=== PATIENT | female | born 1985 ===

== ENCOUNTER → 2020-09-21 | Outpatient (CLI) | payer OTHER ==
--- NOTE | 2020-09-21 14:20 | US ---
EXAMINATION TYPE: Transabdominal DATE OF EXAM: 09/21/2020 1:52 PM COMPARISON: NONE CLINICAL HISTORY: Z36 Confirm Dates, O46.91 bleeding. dating with spotting, light red, today, h/o pel marisol pain on the left, . Positive beta-hCG test. EXAM PERFORMED: OBTA EXAM MEASUREMENTS: GESTATIONAL AGE / DATING Physician Established: Not yet established Dates by LMP: ( 9 weeks/1 days) EDC: 04/25/2021 Dates by First Scan: No previous this is first scan Dates by Current Scan for: (6 weeks/6 days) EDC: 05/11/2021 MATERNAL ANATOMY Uterus: 13.7 x 6.8 x 6.0cm, multiple fibroids seen, left posterior = 4.0cm , right anterior = 1.3cm, midline posterior = 3.2cm Right Ovary: 2.0 x 2.1 x 2.2cm Left Ovary: 2.3 x 2.2 x 1.4cm Post CDS / Adnexa: wnl Presence of free fluid: no Presence of corpus luteal cyst: yes, left ovary 1.8cm Presence of subchorionic bleed: no GESTATION / SURVEY CRL: not seen at this time MSD: 2.3cm (6 weeks/6 days), slightly irregular with no fetus seen within sac, only yolk sac Yolk Sac (normal less than 6mm): 5mm Date of LMP: 07/19/2020 Beta HcG (if available): pending Heterogeneous anteverted prominent uterus. There is a elongated anechoic structure measuring 2.7 x 2. 0 x 2.2 cm in the uterine fundus. There is central 5 mm rim hyperechoic round lesion. Findings could reflect gestational sac and yolk sac. No distinct pole seen. Possible gestational sac does not show great surrounding decidual reaction. No free fluid in pelvic cul-de-sac. Lobulated contour to th e uterus suggests underlying fibroids. Both ovaries identified. No suspicious extra ovarian adnexal lesions. IMPRESSION: Abnormal study. Findings could reflect too early to visualize intrauterine but suspicious for spontaneous . Ectopic is not entirely excluded. Serial beta-hCG and ultrasound follow-up should be considered based on clinical correlation.
== END | disposition home or self-care (01) ==
LOC: RADUSWWP 13:35
PROVIDERS: ATTEND Obstetrics & Gynecology
DX: O46.91 Antepartum hemorrhage, unspecified, first trimester (principal)
CPT/HCPCS: 76801; 84702

== ENCOUNTER → 2020-09-24 | Outpatient (CLI) | payer OTHER | END | disposition home or self-care (01) | LOC: LABWHC1 09:38 | PROVIDERS: ATTEND Obstetrics & Gynecology | DX: O20.0 Threatened abortion (principal); Z3A.00 Weeks of gestation of pregnancy not specified | CPT/HCPCS: 36415; 84702 ==

== ENCOUNTER 2021-11-26 23:55 | Emergency (ER) | payer OTHER ==
--- NOTE | 2021-11-27 00:51 | ED ---
Female Urogenital HPI - General Chief complaint: Vaginal Bleeding Stated complaint: 8-9 weeks ,bleeding and cramping Time Seen by Provider: 11/27/21 00:14 Source: patient Mode of arrival: ambulatory Limitations: no limitations - History of Present Illness Initial comments: This patient is 36-year-old woman who presents with complaint of being and having some vaginal spotting. Patient states that she did take a test approximately 3 weeks ago which was positive. Her last period was the end of August. She states that she had been feeling well until tonight when she started having some spotting and some suprapubic cramping. Complaint: vaginal bleeding -: hour(s) Location: suprapubic Radiation: non-radiating Severity: mild Quality: cramping Consistency: intermittent Improves with: none Worsens with: none Last Menstrual Period: 09/25/21 Patient : Yes - Related Data Allergies Allergy/AdvReac Type Severity Reaction Status Date / Time No Known Allergies Allergy Verified 11/27/21 00:05 Review of Systems ROS Statement: Those systems with pertinent positive or pertinent negative responses have been documented in the HPI. ROS Other: All systems not noted in ROS Statement are negative. Constitutional: Denies: fever, chills Respiratory: Denies: cough, dyspnea Cardiovascular: Denies: chest pain, palpitations Gastrointestinal: Denies: abdominal pain, vomiting, diarrhea Genitourinary: Denies: dysuria, frequency, discharge Musculoskeletal: Denies: back pain Skin: Denies: rash Neurological: Denies: headache Past Medical History Past Medical History: No Reported History History of Any Multi-Drug Resistant Organisms: None Reported Past Surgical History: No Surgical Hx Reported Past Psychological History: No Psychological Hx Reported Smoking Status: Former smoker Past Alcohol Use History: None Reported Past Drug Use History: None Reported General Exam Limitations: no limitations General appearance: alert, in no apparent distress Head exam: Present: atraumatic, normocephalic Eye exam: Present: normal appearance. Absent: scleral icterus, conjunctival injection Neck exam: Present: normal inspection Respiratory exam: Present: normal lung sounds bilaterally. Absent: respiratory distress, wheezes, rales, rhonchi, stridor Cardiovascular Exam: Present: regular rate, normal rhythm, normal heart sounds. Absent: systolic murmur, diastolic murmur, rubs, gallop GI/Abdominal exam: Present: soft. Absent: distended, tenderness, guarding, rebound, rigid, mass External exam: Present: other (Declines gynecologic exam) Extremities exam: Present: normal inspection, normal capillary refill. Absent: pedal edema, calf tenderness Back exam: Present: normal inspection. Absent: CVA tenderness (R), CVA tenderness (L) Neurological exam: Present: alert Skin exam: Present: warm, dry, intact, normal color. Absent: rash Course Vital Signs 11/27/21 11/27/21 00:05 03:01 Temperature 97.5 F L 98.7 F Pulse Rate 82 71 Respiratory 16 20 Rate Blood Pressure 137/81 137/77 O2 Sat by Pulse 98 97 Oximetry Medical Decision Making - Medical Decision Making This patient is a 36-year-old woman in early with ultrasound not able to identify . Discussed appropriate further care and follow-up, including having repeat hCG and ultrasound in 2 days. Discussed appropriate return parameters. All questions answered. - Lab Data Lab Results 11/27/21 11/27/21 Range/Units 00:38 01:55 HCG, Quant 3635.7 mIU/mL Blood Type A Negative Blood Type Recheck A Neg Bld Type Recheck Status No Antibody Screen NEGATIVE Spec Expiration Date 11/30/20212354 Disposition Clinical Impression: Threatened Disposition: HOME SELF-CARE Condition: Good Instructions (If sedation given, give patient instructions): Threatened Miscarriage (ED) Is patient prescribed a controlled substance at d/c from ED?: No Referrals: Rianna Gloria NPC [Family Provider] - 1-2 days Malena Gomez DO [Doctor of Osteopathic Medicine] - 1-2 days
--- NOTE | 2021-11-27 01:27 | US ---
EXAM: US First Trimester , Transabdominal CLINICAL HISTORY: ITS.REASON US Reason: first trimester bleeding TECHNIQUE: Real-time transabdominal obstetrical ultrasound of the maternal pelvis and a first trimester with image documentation. COMPARISON: No previous studies. FINDINGS: Gestation: No intrauterine gestation is noted. Placenta/amniotic fluid: Cannot be adequately evaluated due to the early gestational age. Uterus/cervix: The uterus measures 8.5 x 6.8 x 7 cm. Endometrial stripe measures 1.2 cm in thickness. No myometrial mass. Ovaries: Both ovaries are obscured by bowel gas. No mass. Free fluid: No free fluid within the posterior cul-de-sac. IMPRESSION: 1. No intrauterine gestation is noted. 2. Early intrauterine or ectopic gestations cannot be excluded and clinical correlation and correlation with laboratory values are advised. 3. No free fluid. 4. Neither ovary is visualized due to bowel gas.
[2021-11-27 03:07] VITALS: BP 137/77; PULSE 71; RESP 20; TEMP 98.7
== END 2021-11-27 03:07 | disposition home or self-care (01) ==
LOC: EC 23:55
DX: O09.91 Supervision of high risk pregnancy, unspecified, first trimester (principal); O20.0 Threatened abortion; Z87.891 Personal history of nicotine dependence; Z3A.00 Weeks of gestation of pregnancy not specified
CPT/HCPCS: 36415; 76801; 76817; 84702; 86850; 86900; 86901; 99284

== ENCOUNTER 2021-11-30 08:59 | Emergency (ER) | payer OTHER ==
[2021-11-30 09:08] VITALS: RESP 18
--- NOTE | 2021-11-30 11:25 | ED ---
General Adult HPI - General Chief complaint: Vaginal Bleeding Stated complaint: 7-8 wks preg, vaginal bleeding Time Seen by Provider: 11/30/21 09:12 Source: patient, RN notes reviewed Mode of arrival: ambulatory Limitations: no limitations - History of Present Illness Initial comments: 36-year-old female presents emergency Department with chief complaint of vaginal bleeding. Patient states started spotting on Monday. Patient was seen in emergency department that have any findings on ultrasound. Patient had hCG drawn on Monday and today. Patient states bleeding seemed increased. She states she has mild discomfort. Patient had a miscarriage last year which this feels very similar but less painful. Patient denies any nausea vomiting diarrhea constipation. Patient has no dysuria no other complaints. - Related Data Allergies Allergy/AdvReac Type Severity Reaction Status Date / Time No Known Allergies Allergy Verified 11/30/21 09:08 Review of Systems ROS Statement: Those systems with pertinent positive or pertinent negative responses have been documented in the HPI. ROS Other: All systems not noted in ROS Statement are negative. Past Medical History Past Medical History: No Reported History History of Any Multi-Drug Resistant Organisms: None Reported Past Surgical History: No Surgical Hx Reported Past Psychological History: No Psychological Hx Reported Smoking Status: Former smoker Past Alcohol Use History: None Reported Past Drug Use History: None Reported General Exam Limitations: no limitations General appearance: alert, in no apparent distress Head exam: Present: atraumatic, normocephalic, normal inspection Respiratory exam: Present: normal lung sounds bilaterally. Absent: respiratory distress, wheezes, rales, rhonchi, stridor Cardiovascular Exam: Present: regular rate, normal rhythm, normal heart sounds. Absent: systolic murmur, diastolic murmur, rubs, gallop, clicks GI/Abdominal exam: Present: soft, normal bowel sounds. Absent: distended, tenderness, guarding, rebound, rigid Back exam: Absent: CVA tenderness (R), CVA tenderness (L) Neurological exam: Present: alert, oriented X3 Skin exam: Present: warm, dry, intact, normal color. Absent: rash Course Vital Signs 11/30/21 09:05 Temperature 98.5 F Pulse Rate 71 Respiratory 18 Rate Blood Pressure 128/75 O2 Sat by Pulse 98 Oximetry Medical Decision Making - Medical Decision Making 36-year-old female presented for vaginal bleeding early . Patient hCG has declined. Patient's having clotting, vaginal bleeding. Patient ultrasound does not show any intrauterine . Patient is having current miscarriage. Patient was given RhoGAM as she is A- blood type. Disposition Clinical Impression: Miscarriage Disposition: HOME SELF-CARE Condition: Stable Instructions (If sedation given, give patient instructions): Miscarriage (ED) Additional Instructions: Please return to the Emergency Department if symptoms worsen or any other co ncerns. Is patient prescribed a controlled substance at d/c from ED?: No Referrals: Andree Lebron DO [Primary Care Provider] - 1-2 days Time of Disposition: 13:25
--- NOTE | 2021-11-30 13:06 | US ---
EXAMINATION TYPE: Transabdominal DATE OF EXAM: 11/30/2021 12:08 PM COMPARISON: US 11/27/2021 CLINICAL HISTORY: Pain, rule out ectopic. PAIN AND BLEEDING x4 DAYS EXAM PERFORMED: Transvaginal (TV) and Transabdominal (TA), endovaginal scanning performed for better evaluation of the adnexa, ovaries EXAM MEASUREMENTS: GESTATIONAL AGE / DATING Physician Established: Not yet established Dates by LMP: ( weeks/ days) EDC: Dates by First Scan: NO IUP SEEN MATERNAL ANATOMY Uterus: 11.2 x 5.6 x 6.6cm, MULTIPLE FIBOIDS NOTED THROUGHOUT UT, LARGEST MEASURES APPROX. 2.5 x 2.1 x 2.9cm Right Ovary: 2.8 x 2.3 x 2.5cm, CORPUS LUT SEEN FOLLICLE ALSO SEEN MEASURING 0.9 x 0.8 x 0.9cm Left Ovary: 1.9 x 1.4 x 2.0xm, SEEN TV ONLY, CYSTIC AREA SEEN MEASURING APPROX. 1.6x 1.2 x 1.8cm Post CDS / Adnexa: APPEARS WNL, TRACE FF Presence of free fluid: NO Presence of corpus luteal cyst: YES LAURA. APPROX 1.4 x 1.3 x 1.3cm Presence of subchorionic bleed: NO GESTATION / SURVEY IUP: No IUP seen at this time Date of LMP: 09/25/21 Beta HcG (if available): 3,468ml NO IUP SEEN ON TODAY'S EXAM, ENDOMETRIUM MEASURES 1.3cm, QUESTIONABLE HYPOECHOIC AREA SEEN IN RT ADNE XA, APPEARS SPERATE FROM RT OVARY, MEASURES APPROX. 2.7 x 2.1 x 1.9cm IMPRESSION: No intrauterine is evident. Probable fibroid uterus. Cannot exclude ectopic .
[2021-11-30] MEDS ORDERED: Rhogam IMMUNE GLOBULIN 1,500 UNIT/1 ML IM ONE (13:20)
[2021-11-30 15:16] VITALS: BP 127/71; PULSE 72; TEMP 98.4
== END 2021-11-30 15:20 | disposition home or self-care (01) ==
LOC: EC 08:59
DX: O03.9 Complete or unspecified spontaneous abortion without complication (principal); Z87.891 Personal history of nicotine dependence
CPT/HCPCS: 86900; 86901; 86850; 76801; 76817; 99284; 96372; J2790

== ENCOUNTER → 2021-11-30 | Outpatient (CLI) | payer OTHER | END | disposition home or self-care (01) | LOC: LABWHC1 08:40 | PROVIDERS: ATTEND Nurse Practitioner Family | DX: O20.9 Hemorrhage in early pregnancy, unspecified (principal); Z3A.00 Weeks of gestation of pregnancy not specified | CPT/HCPCS: 36415; 84702 ==

== ENCOUNTER 2021-12-05 22:27 | Emergency (ER) | payer OTHER ==
[2021-12-05 22:31] VITALS: BP 141/72; PULSE 76; RESP 18; TEMP 98.6
[2021-12-05] MEDS ORDERED: SODIUM CHLORIDE 0.9% 1,000 ML IV ONE (22:35)
[2021-12-05] MEDS ORDERED: KETOROLAC 15 MG/ML 1 ML VIAL IVP STA (22:35)
[2021-12-05] MEDS ORDERED: ONDANSETRON 4 MG/2 ML VIAL IVP STA (22:35)
[2021-12-05] MEDS ORDERED: MORPHINE SULFATE 4 MG/ML SYRINGE IV STA (22:35)
--- NOTE | 2021-12-05 22:42 | ED ---
Abdominal Pain HPI - General Chief Complaint: Abdominal Pain Stated Complaint: Miscarriage, Abdominal Swelling Time Seen by Provider: 12/05/21 22:34 Source: patient, RN notes reviewed, old records reviewed Mode of arrival: ambulatory Limitations: no limitations - History of Present Illness Initial Comments: This is a 28-year-old female to emergency department for evaluation of recent miscarriage. Patient has had prior evaluations for same issue. Mild nausea no vomiting but now with increased epigastric and periumbilical abdominal pain as well as the persistent pelvic abdominal pain and cramping leading has slowed down to the fact that almost stopped. Patient otherwise has no fevers, no other complaints. No surgical history. This is her fourth MD Complaint: abdominal pain -: days(s) Location: diffuse, periumbilical, epigastric, suprapubic Radiation: epigastric, suprapubic Severity: moderate Severity scale (1-10): 5 Quality: stabbing Consistency: constant Improves With: nothing Worsens With: nothing Associated Symptoms: nausea Treatments Prior to Arrival: other - Related Data Allergies Allergy/AdvReac Type Severity Reaction Status Date / Time No Known Allergies Allergy Verified 11/30/21 09:08 Review of Systems ROS Statement: Those systems with pertinent positive or pertinent negative responses have been documented in the HPI. ROS Other: All systems not noted in ROS Statement are negative. Past Medical History Past Medical History: No Reported History History of Any Multi-Drug Resistant Organisms: None Reported Past Surgical History: No Surgical Hx Reported Past Psychological History: No Psychological Hx Reported Smoking Status: Former smoker Past Alcohol Use History: None Reported Past Drug Use History: None Reported General Exam Limitations: no limitations General appearance: alert, in no apparent distress Head exam: Present: atraumatic, normocephalic, normal inspection Eye exam: Present: normal appearance, PERRL, EOMI. Absent: scleral icterus, conjunctival injection, periorbital swelling ENT exam: Present: normal exam, mucous membranes moist Neck exam: Present: normal inspection. Absent: tenderness, meningismus, lymphadenopathy Respiratory exam: Present: normal lung sounds bilaterally. Absent: respiratory distress, wheezes, rales, rhonchi, stridor Cardiovascular Exam: Present: regular rate, normal rhythm, normal heart sounds. Absent: systolic murmur, diastolic murmur, rubs, gallop, clicks GI/Abdominal exam: Present: soft, tenderness, normal bowel sounds. Absent: distended, guarding, rebound, rigid Extremities exam: Present: normal inspection, full ROM, normal capillary refill. Absent: tenderness, pedal edema, joint swelling, calf tenderness Back exam: Present: normal inspection Neurological exam: Present: alert, oriented X3, CN II-XII intact Psychiatric exam: Present: normal affect, normal mood Skin exam: Present: warm, dry, intact, normal color. Absent: rash Course Vital Signs 12/05/21 22:28 Temperature 98.6 F Pulse Rate 76 Respiratory 18 Rate Blood Pressure 141/72 O2 Sat by Pulse 100 Oximetry - Reevaluation(s) Reevaluation #1: 12/05/21 23:07 Record is reviewed Reevaluation #2: 12/06/21 00:09 Patient is having improved pain control Reevaluation #3: 12/06/21 00:10 patient informed results and questions answered Medical Decision Making - Medical Decision Making 28 female DF for abdominal pain abdominal pain after miscarriage. Patient had active miscarriage's past week breathing is slightly abdominal pain is increasing. Patient has negative lab tests earlier computed tomography scan is negative and she can be discharged - Lab Data Result diagrams: 12/05/21 22:59 12/05/21 22:59 Lab Results 12/05/21 12/05/21 12/05/21 Range/Units 22:59 22:59 22:59 WBC 7.9 (3.8-10.6) k/uL RBC 4.07 (3.80-5.40) m/uL Hgb 12.5 (11.4-16.0) gm/dL Hct 35.3 (34.0-46.0) % MCV 86.7 (80.0-100.0) fL MCH 30.6 (25.0-35.0) pg MCHC 35.3 (31.0-37.0) g/dL RDW 13.5 (11.5-15.5) % Plt Count 284 (150-450) k/uL MPV 8.1 Neutrophils % 61 % Lymphocytes % 30 % Monocytes % 5 % Eosinophils % 2 % Basophils % 0 % Neutrophils # 4.8 (1.3-7.7) k/uL Lymphocytes # 2.4 (1.0-4.8) k/uL Monocytes # 0.4 (0-1.0) k/uL Eosinophils # 0.2 (0-0.7) k/uL Basophils # 0.0 (0-0.2) k/uL PT 10.0 (9.0-12.0) sec INR 0.9 (<1.2) APTT 23.2 (22.0-30.0) sec Sodium 135 L (137-145) mmol/L Potassium 3.9 (3.5-5.1) mmol/L Chloride 107 (98-107) mmol/L Carbon Dioxide 23 (22-30) mmol/L Anion Gap 5 mmol/L BUN 19 H (7-17) mg/dL Creatinine 0.69 (0.52-1.04) mg/dL Est GFR (CKD-EPI)AfAm >90 (>60 ml/min/1.73 sqM) Est GFR (CKD-EPI)NonAf >90 (>60 ml/min/1.73 sqM) Glucose 93 (74-99) mg/dL Calcium 8.9 (8.4-10.2) mg/dL Lipase 135 (23-300) U/L HCG, Quant 2983.6 mIU/mL - Radiology Data Radiology results: report reviewed (CT head and pelvis is negative for acute disease), image reviewed Disposition Clinical Impression: Miscarriage Disposition: HOME SELF-CARE Condition: Good Instructions (If sedation given, give patient instructions): Miscarriage (ED) Is patient prescribed a controlled substance at d/c from ED?: No Referrals: Andree Lebron DO [Primary Care Provider] - 1-2 days
[2021-12-05 23:08] LABS: Basophils % (A) 0 %; Eosinophils # (A) 0.2 k/uL (0-0.7); Eosinophils % (A) 2 %; HCT 35.3 % (34.0-46.0); HGB 12.5 gm/dL (11.4-16.0); Lymphocytes # (A) 2.4 k/uL (1.0-4.8); Lymphocytes % (A) 30 %; MCH 30.6 pg (25.0-35.0); MCHC 35.3 g/dL (31.0-37.0); MCV 86.7 fL (80.0-100.0); Mean Platelet Volume 8.1; Monocytes # (A) 0.4 k/uL (0-1.0); Monocytes % (A) 5 %; Neutrophils # (A) 4.8 k/uL (1.3-7.7); Neutrophils % (A) 61 %; Platelet Count 284 k/uL (150-450); RBC 4.07 m/uL (3.80-5.40); RDW 13.5 % (11.5-15.5); WBC 7.9 k/uL (3.8-10.6)
[2021-12-05 23:21] LABS: INR 0.9 (<1.2); Partial Thromboplastin Time 23.2 sec (22.0-30.0)
[2021-12-05 23:28] LABS: African American GFR (CKD) >90 (>60 ml/min/1.73 sqM); Anion Gap 5 mmol/L; Blood Urea Nitrogen 19 mg/dL (7-17); Calcium 8.9 mg/dL (8.4-10.2); Carbon Dioxide 23 mmol/L (22-30); Chloride 107 mmol/L (98-107); Glucose 93 mg/dL (74-99); Lipase 135 U/L (23-300); Non-African American GFR(CKD) >90 (>60 ml/min/1.73 sqM); Potassium 3.9 mmol/L (3.5-5.1); Sodium 135 mmol/L (137-145)
[2021-12-05 23:44] LABS: HCG,Quantitative Serum 2983.6 mIU/mL
--- NOTE | 2021-12-05 23:47 | CT ---
EXAMINATION TYPE: CT abdomen pelvis w con DATE OF EXAM: 12/05/2021 COMPARISON: None HISTORY: Abd pain CT DLP: 1343.4 mGycm Automated exposure control for dose reduction was used. CONTRAST: Performed with IV Contrast, patient injected with 100 mL of Isovue 300. Images obtained from the diaphragm to the floor the pelvis with the IV contrast. There is mild subsegmental atelectasis at the lung bases. No pleural effusion. No pericardial effusio n. Heart size is normal. Liver spleen pancreas stomach and gallbladder appear normal. The bile ducts are not dilated. There is no adrenal mass. Kidneys of normal size and contour. No hydronephrosis. Ureters are not dila norbert. There is no retroperitoneal adenopathy. Urinary bladder distends smoothly. Uterus is anteverted. No free fluid in the pelvis. No pelvic mass. Appendix is posterior and appears normal. There is no mesenteric edema. No ascites or free air. No sign of a bowel obstruction. Delayed images show normal renal excretion. The lumbar vertebra have normal alignment. Posterior elements are intact. No compression fracture. Th e bony pelvis is intact. Hip joints are intact. IMPRESSION: Negative CT scan abdomen and pelvis. Minimal atelectasis at the lung bases. Normal appendix.
[2021-12-06] MEDS ORDERED: ONDANSETRON 4 MG ODT STARTER PACK 2 TAB BTL PO STA (00:11)
[2021-12-06] MEDS ORDERED: IBUPROFEN 600 MG STARTER PACK 4 TAB BTL PO STA (00:11)
[2021-12-06] MEDS ORDERED: MORPHINE SULFATE 4 MG/ML SYRINGE IVP STA (00:11)
[2021-12-06] MEDS ORDERED: ACET/COD 300 MG/30 MG STARTER PACK 6 TAB BTL PO STA (00:11)
== END 2021-12-06 00:35 | disposition home or self-care (01) ==
LOC: EC 22:27
DX: O03.9 Complete or unspecified spontaneous abortion without complication (principal); Z87.891 Personal history of nicotine dependence
CPT/HCPCS: 36415; 86900; 86901; 80048; 83690; 85025; 85610; 85730; 86850; 86870; 86880; 84702; 74177; 99284; S0119; Q9967

== ENCOUNTER 2021-12-11 20:07 | Observation (INO) | payer OTHER ==
[2021-12-11] MEDS ORDERED: HYDROmorphone 0.5 MG/0.5 ML SYRINGE IVP STA (20:55)
[2021-12-11] MEDS ORDERED: SODIUM CHLORIDE 0.9% 1,000 ML IV STA (20:55)
[2021-12-11 21:52] LABS: ALT 13 U/L (4-34); AST 32 U/L (14-36); African American GFR (CKD) >90 (>60 ml/min/1.73 sqM); Albumin 2.8 g/dL (3.5-5.0); Alkaline Phosphatase 22 U/L (38-126); Anion Gap 2 mmol/L; Blood Urea Nitrogen 19 mg/dL (7-17); Calcium 7.5 mg/dL (8.4-10.2); Carbon Dioxide 19 mmol/L (22-30); Chloride 113 mmol/L (98-107); Glucose 114 mg/dL (74-99); Lipase 96 U/L (23-300); Non-African American GFR(CKD) >90 (>60 ml/min/1.73 sqM); Potassium 5.4 mmol/L (3.5-5.1); Sodium 134 mmol/L (137-145); Total Bilirubin 0.7 mg/dL (0.2-1.3); Total Protein 5.1 g/dL (6.3-8.2)
[2021-12-11] MEDS ORDERED: MORPHINE SULFATE 4 MG/ML SYRINGE IVP STA (21:52)
[2021-12-11 22:08] LABS: HCG,Quantitative Serum 1808.5 mIU/mL
--- NOTE | 2021-12-11 22:14 | US ---
EXAMINATION TYPE: Transabdominal DATE OF EXAM: 12/11/2021 9:52 PM COMPARISON: US, CT CLINICAL HISTORY: miscarriage vs ectopic preg, severe low abd pain. Miscarriage vs ectopic per order. Patient is in severe amount of pain. OBINNA Patel, also requesting to rule out ovarian torsion. . Hx miscarriage. EXAM PERFORMED: Transvaginal (TV) and Transabdominal (TA) EXAM MEASUREMENTS: GESTATIONAL AGE / DATING Physician Established: Not yet established Dates by LMP: (11 weeks/0 days) EDC: 07/02/2022 Dates by Current Scan for: No IUP seen at this time. MATERNAL ANATOMY Uterus: 10.1 x 6.1 x 5.9 Anteverted. Appears heterogeneous. Multiple probable fibroids seen. Largest : 2.5 x 2.9 x 2.4 cm. Endometrium measured at 1.95 cm-limited. Right Ovary: Not definitely identified Left Ovary: Not definitely identified Post CDS / Adnexa: Large complex area seen midline pelvis extending into the right adnexa: 9.6 x 9. 5 x 4.7 cm. Fluid seen surrounding. Hyperechoic area with hypoechoic center seen TA that was more defined and was not seen transvaginally measurin.1 x 3.0 x 2.9 cm. Presence of free fluid: Yes in CDS and right adnexa. GESTATION / SURVEY IUP: No IUP seen at this time. Date of LMP: 09/25/2021 Beta HcG (if available): Not available Complex area of uncertainty seen in right adnexa-midline pelvis as mentioned above. IMPRESSION: The uterus is empty. Ovaries not seen. Complex area in the cul-de-sac. The appearance is nonspecific. Ruptured ectopic is possible. Also consider PID and endometriosis.
[2021-12-11] MEDS ORDERED: ACETAMINOPHEN IV (For NPO) 1,000 MG in EMPTY BAG 1 BAG IVPB STA (22:52)
[2021-12-11] MEDS ORDERED: ONDANSETRON 4 MG/2 ML VIAL IVP STA (22:52)
[2021-12-11 23:11] LABS: Basophils # (A) 0.1 k/uL (0-0.2); Basophils % (A) 0 %; Eosinophils # (A) 0.1 k/uL (0-0.7); Eosinophils % (A) 0 %; HCT 26.6 % (34.0-46.0); Lymphocytes # (A) 1.4 k/uL (1.0-4.8); Lymphocytes % (A) 8 %; MCH 29.7 pg (25.0-35.0); MCHC 33.7 g/dL (31.0-37.0); MCV 88.1 fL (80.0-100.0); Mean Platelet Volume 8.5; Monocytes # (A) 0.3 k/uL (0-1.0); Monocytes % (A) 2 %; Neutrophils # (A) 14.5 k/uL (1.3-7.7); Neutrophils % (A) 88 %; Platelet Count 227 k/uL (150-450); RBC 3.02 m/uL (3.80-5.40); RDW 13.7 % (11.5-15.5); WBC 16.5 k/uL (3.8-10.6)
[2021-12-11] MEDS ORDERED: HYDROmorphone 0.5 MG/0.5 ML SYRINGE IVP PRN (23:44)
[2021-12-11] MEDS ORDERED: ONDANSETRON 4 MG/2 ML VIAL IVP PRN (23:44)
[2021-12-11] MEDS ORDERED: NALOXONE 0.4 MG/ML 1 ML VIAL IV PRN (23:44)
--- NOTE | 2021-12-11 23:45 | ED ---
Abdominal Pain HPI - General Chief Complaint: Abdominal Pain Stated Complaint: Abdominal pain Time Seen by Provider: 12/11/21 20:45 Source: patient, family Mode of arrival: EMS Limitations: no limitations - Related Data Allergies Allergy/AdvReac Type Severity Reaction Status Date / Time No Known Allergies Allergy Verified 12/11/21 20:21 Review of Systems ROS Statement: Those systems with pertinent positive or pertinent negative responses have been documented in the HPI. ROS Other: All systems not noted in ROS Statement are negative. Past Medical History Past Medical History: No Reported History History of Any Multi-Drug Resistant Organisms: None Reported Past Surgical History: No Surgical Hx Reported Past Psychological History: No Psychological Hx Reported Smoking Status: Light tobacco smoker Past Alcohol Use History: None Reported Past Drug Use History: None Reported General Exam Limitations: no limitations Course Vital Signs 12/11/21 12/11/21 12/11/21 20:14 20:15 20:20 Temperature 98.5 F Pulse Rate 60 67 58 L Respiratory 18 Rate Blood Pressure 118/85 118/85 O2 Sat by Pulse 98 98 98 Oximetry 12/11/21 12/11/21 12/11/21 20:30 20:40 20:50 Temperature Pulse Rate 61 62 63 Respiratory Rate Blood Pressure 118/85 128/75 128/75 O2 Sat by Pulse 98 99 99 Oximetry 12/11/21 12/11/21 12/11/21 21:00 21:10 21:20 Temperature Pulse Rate 59 L Respiratory Rate Blood Pressure 128/75 118/67 118/67 O2 Sat by Pulse 100 96 99 Oximetry 12/11/21 12/11/21 12/11/21 21:30 21:40 21:50 Temperature Pulse Rate Respiratory Rate Blood Pressure 118/67 116/64 116/64 O2 Sat by Pulse 100 100 88 L Oximetry 12/11/21 12/11/21 12/11/21 22:00 22:10 22:20 Temperature Pulse Rate Respiratory Rate Blood Pressure 116/64 104/54 104/54 O2 Sat by Pulse Oximetry 12/11/21 12/11/21 12/11/21 22:30 22:40 22:50 Temperature Pulse Rate Respiratory Rate Blood Pressure 104/54 100/50 105/51 O2 Sat by Pulse Oximetry Medical Decision Making - Lab Data Result diagrams: 12/11/21 22:45 12/11/21 21:15 Lab Results 0712/11/21 12/11/21 Range/Units 21:15 21:15 22:45 WBC 16.5 H (3.8-10.6) k/uL RBC 3.02 L (3.80-5.40) m/uL Hgb 9.0 L D (11.4-16.0) gm/dL Hct 26.6 L (34.0-46.0) % MCV 88.1 (80.0-100.0) fL MCH 29.7 (25.0-35.0) pg MCHC 33.7 (31.0-37.0) g/dL RDW 13.7 (11.5-15.5) % Plt Count 227 (150-450) k/uL MPV 8.5 Neutrophils % 88 % Lymphocytes % 8 % Monocytes % 2 % Eosinophils % 0 % Basophils % 0 % Neutrophils # 14.5 H (1.3-7.7) k/uL Lymphocytes # 1.4 (1.0-4.8) k/uL Monocytes # 0.3 (0-1.0) k/uL Eosinophils # 0.1 (0-0.7) k/uL Basophils # 0.1 (0-0.2) k/uL Sodium 134 L (137-145) mmol/L Potassium 5.4 H (3.5-5.1) mmol/L Chloride 113 H (98-107) mmol/L Carbon Dioxide 19 L (22-30) mmol/L Anion Gap 2 mmol/L BUN 19 H (7-17) mg/dL Creatinine 0.58 (0.52-1.04) mg/dL Est GFR (CKD-EPI)AfAm >90 (>60 ml/min/1.73 sqM) Est GFR (CKD-EPI)NonAf >90 (>60 ml/min/1.73 sqM) Glucose 114 H (74-99) mg/dL Plasma Lactic Acid Jagdeep 1.5 (0.7-2.0) mmol/L Calcium 7.5 L (8.4-10.2) mg/dL Total Bilirubin 0.7 (0.2-1.3) mg/dL AST 32 (14-36) U/L ALT 13 (4-34) U/L Alkaline Phosphatase 22 L (38-126) U/L Total Protein 5.1 L (6.3-8.2) g/dL Albumin 2.8 L (3.5-5.0) g/dL Lipase 96 (23-300) U/L HCG, Quant 1808.5 mIU/mL Disposition Clinical Impression: Abdominal pain, Ruptured ectopic Disposition: ADMITTED IP TO THIS HOSP Condition: Serious Is patient prescribed a controlled substance at d/c from ED?: No Referrals: Andree Lebron DO [Primary Care Provider] - 1-2 days
--- NOTE | 2021-12-12 00:05 | P.HPOB ---
History of Present Illness H&P Date: 12/12/21 Chief Complaint: abdominal pain 36 -year-old presents to the emergency room with sudden onset of pelvic and abdominal pain tonight. She's been followed on outpatient and in the ER by Dr. Gomez for a possible spontaneous . Her beta hCG did go down from [id number] tonight. Her hemoglobin also dropped from 12 a few days ago when she was here to 9 tonight. Ultrasound showed a complex fluid collection in the pelvis measuring 9 cm. I believe the patient possibly has a ruptured ectopic or a ruptured corpus luteum cyst. Review of Systems All systems: negative Constitutional: Denies chills, Denies fever Eyes: denies blurred vision, denies pain Ears, nose, mouth and throat: Denies headache, Denies sore throat Cardiovascular: Denies chest pain, Denies shortness of breath Respiratory: Denies cough Gastrointestinal: Denies abdominal pain, Denies diarrhea, Denies nausea, Denies vomiting Genitourinary: Denies dysuria, Denies hematuria Musculoskeletal: Denies myalgias Integumentary: Denies pruritus, Denies rash Neurological: Denies numbness, Denies weakness Psychiatric: Denies anxiety, Denies depression Endocrine: Denies fatigue, Denies weight change Past Medical History Past Medical History: No Reported History History of Any Multi-Drug Resistant Organisms: None Reported Past Surgical History: No Surgical Hx Reported Past Psychological History: No Psychological Hx Reported Smoking Status: Light tobacco smoker Past Alcohol Use History: None Reported Past Drug Use History: None Reported Medications and Allergies Allergies Allergy/AdvReac Type Severity Reaction Status Date / Time No Known Allergies Allergy Verified 12/11/21 20:21 Exam Osteopathic Statement: *. No significant issues noted on an osteopathic structural exam other than those noted in the History and Physical/Consult. Vital Signs Temp Pulse Resp BP Pulse Ox 12/11/21 22:50 105/51 12/11/21 22:40 100/50 12/11/21 22:30 104/54 12/11/21 22:20 104/54 12/11/21 22:10 104/54 12/11/21 22:00 116/64 12/11/21 21:50 116/64 88 L 12/11/21 21:40 116/64 100 12/11/21 21:30 118/67 100 12/11/21 21:20 118/67 99 12/11/21 21:10 118/67 96 12/11/21 21:00 59 L 128/75 100 12/11/21 20:50 63 128/75 99 12/11/21 20:40 62 128/75 99 12/11/21 20:30 61 118/85 98 12/11/21 20:20 58 L 118/85 98 12/11/21 20:15 98.5 F 67 18 118/85 98 12/11/21 20:14 60 98 Intake and Output 12/11/21 12/11/21 12/12/21 14:59 22:59 06:59 Other: Weight 90.718 kg Heart: Regular rate and rhythm Lungs: Clear to auscultation bilaterally Abdomen: Soft, distended, tender to minimal palpation Extremities: Negative Homans sign Results Result Diagrams: 12/11/21 22:45 12/11/21 21:15 Abnormal Lab Results - Last 24 Hours (Table) 12/11/21 12/11/21 Range/Units 21:15 22:45 WBC 16.5 H (3.8-10.6) k/uL RBC 3.02 L (3.80-5.40) m/uL Hgb 9.0 L D (11.4-16.0) gm/dL Hct 26.6 L (34.0-46.0) % Neutrophils # 14.5 H (1.3-7.7) k/uL Sodium 134 L (137-145) mmol/L Potassium 5.4 H (3.5-5.1) mmol/L Chloride 113 H (98-107) mmol/L Carbon Dioxide 19 L (22-30) mmol/L BUN 19 H (7-17) mg/dL Glucose 114 H (74-99) mg/dL Calcium 7.5 L (8.4-10.2) mg/dL Alkaline Phosphatase 22 L (38-126) U/L Total Protein 5.1 L (6.3-8.2) g/dL Albumin 2.8 L (3.5-5.0) g/dL Assessment and Plan (1) Ruptured ectopic Current Visit: Yes Status: Acute Code(s): O00.90 - UNSPECIFIED ECTOPIC WITHOUT INTRAUTERINE SNOMED Code(s): 08150658 Plan: 1. Laparoscopy with removal of ectopic possible salpingectomy possible oophorectomy and possible laparotomy. All risks benefits and alternatives have been discussed with the patient, her daughter and her fianc. Patient expressed understanding.
[2021-12-12] MEDS ORDERED: BUPIVACAINE (PF) 0.25% 30 ML VIAL SQ ONE (00:45)
[2021-12-12] MEDS ORDERED: PROPOFOL 10 MG/ML 20 ML VIAL IV ONE (00:49)
[2021-12-12] MEDS ORDERED: GLYCOPYRROLATE 0.2 MG/ML 2 ML VIAL ONE (00:49)
[2021-12-12] MEDS ORDERED: LIDOCAINE 2% INJ 20 MG/ML (2 ML VIAL) ONE (00:49)
[2021-12-12] MEDS ORDERED: fentaNYL (PF) 50 MCG/ML 2 ML AMP ONE (00:49)
[2021-12-12] MEDS ORDERED: MIDAZOLAM 2 MG/2 ML VIAL ONE (00:49)
[2021-12-12] MEDS ORDERED: ROCURONIUM 10 MG/ML (5 ML VIAL) IV ONE (00:49)
[2021-12-12] MEDS ORDERED: SODIUM CHLORIDE 0.9% 1,000 ML IV ONE (00:49)
[2021-12-12] MEDS ORDERED: SUCCINYLCHOLINE CHLORIDE 100 MG/5 ML SYR IV ONE (00:49)
[2021-12-12] MEDS ORDERED: SODIUM CHLORIDE 0.9% 50 ML with ceFAZolin 2 GM IV ONE ×2 (01:01)
[2021-12-12] MEDS ORDERED: LACTATED RINGERS 1,000 ML IV ONE (01:26)
--- NOTE | 2021-12-12 01:57 | P.OP ---
Date of Procedure: 12/12/21 Preoperative Diagnosis: 1. Ruptured ectopic Postoperative Diagnosis: 1. Ruptured ectopic from the right fallopian tube 2. Hemoperitoneum Procedure(s) Performed: Laparoscopic partial right salpingectomy with removal of ectopic , evacuation of hemoperitoneum Anesthesia: CAROLIN Surgeon: Beatris Dawson Estimated Blood Loss (ml): 5 IV fluids (ml): 1,000 Urine output (ml): 200 Pathology: other (Portion of right fallopian tube with ectopic ) Condition: stable Disposition: PACU Operative Findings: Swollen purple right fallopian tube in the ampullar portion actively bleeding from a rupture site. Uterus sounded 9 cm. Normal left fallopian tube normal bilateral ovaries. Hemoperitoneum of 1 L Description of Procedure: Patient is taken the operating room and general anesthesia was obtained without difficulty. She is prepped draped in normal sterile fashion dorsal lithotomy position, legs placed in the James stirrups. Bladder was drained of all urine. [place] speculum placed in the vagina and the anterior lip of the cervix was grasped with single-tooth tenaculum. Uterus sounded to 9 cm and the kroner manipulator was placed. Attention was turned to the abdomen and gloves were changed. A 10 mm infraumbilical incision was made the scalpel 10 mm optical trocar was placed under direct visualization. Hemoperitoneum was immediately visualized. A 5 mm suprapubic incision was made with scalpel 5 mm optical trocar was placed under direct visualization. Some of the blood was suctioned out and the uterus was anteverted. The right fallopian tube was medially seen to be swollen and purple in the ampullar portion near the cornu. This area was actively bleeding, slowly. A 5 mm incision was made in the right lower quadrant a 5 mm optical trocar placed under direct visualization. 5 mm LigaSure was used to grasp seal and cut the mesosalpinx to remove the portion of fallopian tube that was swollen and bleeding. Hemostasis was assured. Suction was again used to remove more of the blood in the pelvis and abdomen. Hemostasis again assured. All instruments removed from the pelvis and abdomen. The infraumbilical incision was closed first with 0 Vicryl and the fascial layer and then 4-0 Vicryl subcuticular fashion. The 5 mm incisions were closed with 4-0 Vicryl subcuticular fashion. Patient procedure well, sponge and instrument counts correct 2. She was taken to recovery in stable condition.
[2021-12-12] MEDS ORDERED: ONDANSETRON 4 MG/2 ML VIAL IVP ONE (01:58)
[2021-12-12] MEDS ORDERED: HYDROmorphone 0.5 MG/0.5 ML SYRINGE IVP ONE (02:04)
[2021-12-12] MEDS ORDERED: DEXAMETHASONE SOD PHOSPHATE 10 MG/ML 1 ML VIAL IVP ONE (02:10)
[2021-12-12] MEDS ORDERED: diphenhydrAMINE 50 MG/ML 1 ML VIAL IVP PRN (02:18)
[2021-12-12] MEDS ORDERED: KETOROLAC 15 MG/ML 1 ML VIAL IVP PRN (02:18)
[2021-12-12] MEDS ORDERED: Acetaminophen-Codeine 300-30mg TAB PO PRN ×2 (02:18)
[2021-12-12] MEDS ORDERED: METOCLOPRAMIDE 5 MG/ML 2 ML VIAL IVP PRN (02:18)
[2021-12-12] MEDS: SODIUM CHLORIDE 0.9% 1,000 ML IV SCH (03:07)
[2021-12-12] MEDS: SIMETHICONE 80 MG CHEWABLE PO PRN ×2 (04:10→14:10)
[2021-12-12 07:43] LABS: Basophils % (A) 0 %; Eosinophils # (A) 0.2 k/uL (0-0.7); Eosinophils % (A) 1 %; HCT 25.7 % (34.0-46.0); HGB 8.4 gm/dL (11.4-16.0); Lymphocytes # (A) 0.5 k/uL (1.0-4.8); Lymphocytes % (A) 4 %; MCH 29.1 pg (25.0-35.0); MCHC 32.7 g/dL (31.0-37.0); Mean Platelet Volume 8.4; Monocytes # (A) 0.1 k/uL (0-1.0); Monocytes % (A) 1 %; Neutrophils # (A) 11.3 k/uL (1.3-7.7); Neutrophils % (A) 93 %; Platelet Count 236 k/uL (150-450); RBC 2.89 m/uL (3.80-5.40); RDW 13.5 % (11.5-15.5); WBC 12.1 k/uL (3.8-10.6)
[2021-12-12] MEDS ORDERED: ACETAMINOPHEN TAB 500 MG TAB PO PRN (09:51)
[2021-12-12] MEDS: IBUPROFEN 600 MG TAB PO PRN ×3 (10:02→23:14)
[2021-12-12] MEDS: SENNOSIDES-DOCUSATE SODIUM 1 EACH TAB PO SCH ×2 (12:33→23:20)
[2021-12-13 01:36] VITALS: RESP 16
[2021-12-13] MEDS: SODIUM CHLORIDE 0.9% 1,000 ML IV SCH (01:37)
[2021-12-13] MEDS: IBUPROFEN 600 MG TAB PO PRN ×2 (05:03→20:05)
[2021-12-13 07:27] LABS: Basophils % (A) 0 %; Eosinophils % (A) 1 %; HCT 20.4 % (34.0-46.0); Lymphocytes # (A) 1.9 k/uL (1.0-4.8); Lymphocytes % (A) 25 %; MCH 30.3 pg (25.0-35.0); MCHC 34.1 g/dL (31.0-37.0); MCV 88.9 fL (80.0-100.0); Mean Platelet Volume 8.2; Monocytes # (A) 0.3 k/uL (0-1.0); Monocytes % (A) 4 %; Neutrophils # (A) 5.2 k/uL (1.3-7.7); Neutrophils % (A) 69 %; Platelet Count 188 k/uL (150-450); RDW 14.1 % (11.5-15.5); WBC 7.5 k/uL (3.8-10.6)
[2021-12-13] MEDS ORDERED: ACETAMINOPHEN IV (For NPO) 1,000 MG in EMPTY BAG 1 BAG IVPB ONE (08:53)
--- NOTE | 2021-12-13 09:06 | P.PN ---
Subjective Progress Note Date: 12/13/21 Principal diagnosis: Status post laparoscopy with right salpingectomy due to ruptured ectopic postoperative day #1 Patient complaining of headache when standing and some shortness of breath with walking. She does state her pain is still fairly significant and she is using ibuprofen for pain. She declines using Tylenol because it makes her stomach upset and she does not 1 oxycodone because is her headache. Her pain is mostly localized in the right lower quadrant where her incisions are. She has been passing some flatus but no bowel movement yet she is tolerating some food. Objective - Vital Signs Vital signs: Vital Signs Temp 98.2 F 12/13/21 00:00 Pulse 115 H 12/13/21 00:00 Resp 16 12/13/21 00:00 BP 118/73 12/13/21 00:00 Pulse Ox 97 12/13/21 00:00 FiO2 Intake & Output 12/12/21 12/13/21 12/13/21 18:59 06:59 18:59 Output Total 500 Balance -500 Weight 90.718 kg Output: Urine 500 Other: # Voids 1 2 - Constitutional General appearance: Present: no acute distress - Gastrointestinal Gastrointestinal Comment(s): Incisions are bandaged was no ecchymosis seen. Mild tenderness. General gastrointestinal: Present: normal bowel sounds - Labs CBC & Chem 7: 12/13/21 06:58 12/11/21 21:15 Labs: Abnormal Lab Results - Last 24 Hours (Table) 12/11/21 12/13/21 Range/Units 22:45 06:58 RBC 2.30 L (3.80-5.40) m/uL Hgb 7.0 L (11.4-16.0) gm/dL Hct 20.4 L (34.0-46.0) % Crossmatch See Detail Assessment and Plan Assessment: Status post laparoscopy with right salpingectomy and evacuation of hemoperitoneum due to ruptured ectopic postoperative day #1 Symptomatic blood loss anemia Plan: We'll give one unit of packed red blood cells today. Will also give IV Tylenol once her IV was restarted. We'll continue to monitor for pain control today. Will recheck CBC in the morning.
[2021-12-13] MEDS: SENNOSIDES-DOCUSATE SODIUM 1 EACH TAB PO SCH ×2 (19:23→20:05)
[2021-12-14] MEDS: SODIUM CHLORIDE 0.9% 1,000 ML IV SCH (00:27)
[2021-12-14] MEDS: IBUPROFEN 600 MG TAB PO PRN (06:43)
[2021-12-14 07:34] LABS: Basophils % (A) 0 %; Eosinophils # (A) 0.1 k/uL (0-0.7); Eosinophils % (A) 2 %; HCT 24.5 % (34.0-46.0); HGB 8.2 gm/dL (11.4-16.0); Lymphocytes # (A) 2.2 k/uL (1.0-4.8); Lymphocytes % (A) 35 %; MCH 29.5 pg (25.0-35.0); MCHC 33.5 g/dL (31.0-37.0); Mean Platelet Volume 8.4; Monocytes # (A) 0.3 k/uL (0-1.0); Monocytes % (A) 4 %; Neutrophils # (A) 3.6 k/uL (1.3-7.7); Neutrophils % (A) 58 %; Platelet Count 198 k/uL (150-450); RBC 2.79 m/uL (3.80-5.40); RDW 13.7 % (11.5-15.5); WBC 6.3 k/uL (3.8-10.6)
[2021-12-14 07:49] VITALS: BP 134/80; PULSE 87; TEMP 98.2
[2021-12-14] MEDS: SENNOSIDES-DOCUSATE SODIUM 1 EACH TAB PO SCH (07:49)
--- NOTE | 2021-12-14 08:59 | P.DS ---
Providers Date of admission: 12/11/21 23:44 Expected date of discharge: 12/14/21 Attending physician: Beatris Dawson Primary care physician: Andree Lebron [facility] Course: This is a 36-year-old female who underwent a laparoscopy with right salpingectomy and evacuation of hemoperitoneum 2 days ago for ruptured ectopic . On postoperative day #1 she did feel lightheaded and short of breath with walking along with a headache. Her hemoglobin had dropped to 7 from 9 prior to surgery. She was given 1 unit of blood. Her headache did go away and she denied any further shortness of breath or dizziness with walking. Her headache has returned this morning but she still feels comfortable going home. She did start bleeding like a light period. Pain is much better today. Vital signs are stable. Abdomen is soft with positive bowel sounds 4. Incisions are clean dry and intact with strips in place. Kaylee-pad shows scant bloody discharge. Impression is status post laparoscopic right salpingectomy with evacuation of hemoperitoneum postoperative day #2. Plan is to discharge home today. Routine postoperative instructions are given. She is advised follow-up in the office in approximately 1-2 weeks for a postoperative check. She is advised no heavy lifting, no tub baths, and no intercourse for at least a week. She may drive when she feels she is comfortable. She will be given a prescription for ibuprofen 600 mg as needed. She is advised to call the office if she has any further questions or concerns prior to her appointment time. Procedures: Laparoscopic right partial salpingectomy with evacuation of hemoperitoneum on 12/12/2021 Patient Condition at Discharge: Serious Plan - Discharge Summary New Discharge Prescriptions: New Ibuprofen [Motrin] 600 mg PO Q6HR PRN #60 tab PRN Reason: Mild Discomfort Discharge Medication List Ibuprofen [Motrin] 600 mg PO Q6HR PRN #60 tab 12/14/21 [Rx] Follow up Appointment(s)/Referral(s): Andree Lebron DO [Primary Care Provider] - 1-2 days Malena Gomez DO [Doctor of Osteopathic Medicine] - 1 Week Activity/Diet/Wound Care/Special Instructions: Activity as tolerated. Diet as tolerated. May shower, but no tub baths for at least 1 week. No intercourse for at least [address] No work until cleared at postoperative visit. Discharge Disposition: HOME SELF-CARE
--- NOTE | 2022-01-24 20:06 | ED ---
Abdominal Pain HPI - General Chief Complaint: Abdominal Pain Stated Complaint: Abdominal pain Time Seen by Provider: 12/11/21 20:45 Source: patient, family, RN notes reviewed, old records reviewed Mode of arrival: EMS Limitations: no limitations - History of Present Illness Initial Comments: This is a 28-year-old female to the emergency room for evaluation by history she has recent with miscarriage. Patient states that she has had pain since has had a few visits for this pain and pain continues to worsen. Pain is currently severe with lightheadedness dizziness and feelings like she might pass out. Patient is no bleeding history. And is having minimal vaginal bleeding just spotting. MD Complaint: abdominal pain (Suprapubic) -: week(s) Location: suprapubic Radiation: suprapubic Migration to: suprapubic Severity: severe Severity scale (1-10): 10 Quality: sharp Consistency: constant Improves With: nothing Worsens With: nothing Context: other (Recent ) Associated Symptoms: nausea, chills Treatments Prior to Arrival: other (0) - Related Data Previous Rx's Medication Instructions Recorded Ibuprofen [Motrin] 600 mg PO Q6HR PRN #60 tab 12/14/21 Allergies Allergy/AdvReac Type Severity Reaction Status Date / Time No Known Allergies Allergy Verified 12/11/21 20:21 Review of Systems ROS Statement: Those systems with pertinent positive or pertinent negative responses have been documented in the HPI. ROS Other: All systems not noted in ROS Statement are negative. Past Medical History Past Medical History: No Reported History History of Any Multi-Drug Resistant Organisms: None Reported Past Surgical History: No Surgical Hx Reported Past Psychological History: No Psychological Hx Reported Smoking Status: Light tobacco smoker Past Alcohol Use History: None Reported Past Drug Use History: None Reported - Past Family History Father Family Medical History: No Reported History General Exam Limitations: no limitations General appearance: anxious, in distress Head exam: Present: atraumatic, normocephalic, normal inspection Eye exam: Present: normal appearance, PERRL, EOMI. Absent: scleral icterus, conjunctival injection, periorbital swelling ENT exam: Present: normal exam, mucous membranes moist Neck exam: Present: normal inspection. Absent: tenderness, meningismus, lymphadenopathy Respiratory exam: Present: normal lung sounds bilaterally. Absent: respiratory distress, wheezes, rales, rhonchi, stridor Cardiovascular Exam: Present: regular rate, normal rhythm, normal heart sounds. Absent: systolic murmur, diastolic murmur, rubs, gallop, clicks GI/Abdominal exam: Present: soft, tenderness, guarding, normal bowel sounds. Absent: distended, rebound, rigid Extremities exam: Present: normal inspection, full ROM, normal capillary refill. Absent: tenderness, pedal edema, joint swelling, calf tenderness Back exam: Present: normal inspection Neurological exam: Present: alert, oriented X3, CN II-XII intact Psychiatric exam: Present: normal affect, normal mood Skin exam: Present: warm, dry, intact, normal color. Absent: rash Course Vital Signs 12/11/21 12/11/21 12/11/21 20:14 20:15 20:20 Temperature 98.5 F Pulse Rate 60 67 58 L Pulse Rate [ Camera Person ] Respiratory 18 Rate Blood Pressure 118/85 118/85 Blood Pressure [Right Arm] O2 Sat by Pulse 98 98 98 Oximetry 12/11/21 12/11/21 12/11/21 20:30 20:40 20:50 Temperature Pulse Rate 61 62 63 Pulse Rate [ Camera Person ] Respiratory Rate Blood Pressure 118/85 128/75 128/75 Blood Pressure [Right Arm] O2 Sat by Pulse 98 99 99 Oximetry 12/11/21 12/11/21 12/11/21 21:00 21:10 21:20 Temperature Pulse Rate 59 L Pulse Rate [ Camera Person ] Respiratory Rate Blood Pressure 128/75 118/67 118/67 Blood Pressure [Right Arm] O2 Sat by Pulse 100 96 99 Oximetry 12/11/21 12/11/21 12/11/21 21:30 21:40 21:50 Temperature Pulse Rate Pulse Rate [ Camera Person ] Respiratory Rate Blood Pressure 118/67 116/64 116/64 Blood Pressure [Right Arm] O2 Sat by Pulse 100 100 88 L Oximetry 12/11/21 12/11/21 12/11/21 22:00 22:10 22:20 Temperature Pulse Rate Pulse Rate [ Camera Person ] Respiratory Rate Blood Pressure 116/64 104/54 104/54 Blood Pressure [Right Arm] O2 Sat by Pulse Oximetry 12/11/21 12/11/21 12/11/21 22:30 22:40 22:50 Temperature Pulse Rate Pulse Rate [ Camera Person ] Respiratory Rate Blood Pressure 104/54 100/50 105/51 Blood Pressure [Right Arm] O2 Sat by Pulse Oximetry 12/12/21 12/12/21 12/12/21 01:45 01:47 02:00 Temperature 97.5 F L 98 F Pulse Rate Pulse Rate [ 60 76 61 Camera Person ] Respiratory 16 18 16 Rate Blood Pressure Blood Pressure 134/83 135/79 123/60 [Right Arm] O2 Sat by Pulse 95 96 97 Oximetry 12/12/21 12/12/21 12/12/21 02:01 02:15 02:16 Temperature Pulse Rate Pulse Rate [ 56 L 72 58 L Camera Person ] Respiratory 16 16 16 Rate Blood Pressure Blood Pressure 160/69 112/76 163/63 [Right Arm] O2 Sat by Pulse 100 96 100 Oximetry 12/12/21 12/12/21 12/12/21 02:30 02:31 03:00 Temperature Pulse Rate Pulse Rate [ 64 60 68 Camera Person ] Respiratory 16 16 16 Rate Blood Pressure Blood Pressure 111/73 143/65 106/72 [Right Arm] O2 Sat by Pulse 95 100 96 Oximetry 12/12/21 03:30 Temperature 98.7 F Pulse Rate Pulse Rate [ 74 Camera Person ] Respiratory 16 Rate Blood Pressure Blood Pressure 99/64 [Right Arm] O2 Sat by Pulse 96 Oximetry - Reevaluation(s) Reevaluation #1: Medical record is reviewed Patient symptoms are improved here in the ER Patient informed of results and questions answered Reevaluation #2: OB is in ER evaluating patient will take the operating room - Consultations Consultation #1: Spoke with Dr. Dawson who will come see the patient Procedures - [place] Protocol (Time Out) Patient Identification (2 identifiers required): Chart, Name, Birthdate Patient/Legal Flower Picker has Confirmed: Identity, Site, Procedure, Consent Site Marked: Not Applicable Medical Decision Making - Medical Decision Making 28 female DF for evaluation patient comes in for severe abdominal pain. Patient has been bleeding with known active history of . No IUP on ultrasound. Patient does have severe pain with some mildly currently altered mental status. Spoke with OB will take patient to the operating room for further evaluation management - Lab Data Result diagrams: 12/14/21 07:12 12/11/21 21:15 Lab Results 12/11/21 12/11/21 12/11/21 Range/Units 21:15 21:15 22:45 WBC 16.5 H (3.8-10.6) k/uL RBC 3.02 L (3.80-5.40) m/uL Hgb 9.0 L D (11.4-16.0) gm/dL Hct 26.6 L (34.0-46.0) % MCV 88.1 (80.0-100.0) fL MCH 29.7 (25.0-35.0) pg MCHC 33.7 (31.0-37.0) g/dL RDW 13.7 (11.5-15.5) % Plt Count 227 (150-450) k/uL MPV 8.5 Neutrophils % 88 % Lymphocytes % 8 % Monocytes % 2 % Eosinophils % 0 % Basophils % 0 % Neutrophils # 14.5 H (1.3-7.7) k/uL Lymphocytes # 1.4 (1.0-4.8) k/uL Monocytes # 0.3 (0-1.0) k/uL Eosinophils # 0.1 (0-0.7) k/uL Basophils # 0.1 (0-0.2) k/uL Sodium 134 L (137-145) mmol/L Potassium 5.4 H (3.5-5.1) mmol/L Chloride 113 H (98-107) mmol/L Carbon Dioxide 19 L (22-30) mmol/L Anion Gap 2 mmol/L BUN 19 H (7-17) mg/dL Creatinine 0.58 (0.52-1.04) mg/dL Est GFR (CKD-EPI)AfAm >90 (>60 ml/min/1.73 sqM) Est GFR (CKD-EPI)NonAf >90 (>60 ml/min/1.73 sqM) Glucose 114 H (74-99) mg/dL Plasma Lactic Acid Jagdeep 1.5 (0.7-2.0) mmol/L Calcium 7.5 L (8.4-10.2) mg/dL Total Bilirubin 0.7 (0.2-1.3) mg/dL AST 32 (14-36) U/L ALT 13 (4-34) U/L Alkaline Phosphatase 22 L (38-126) U/L Total Protein 5.1 L (6.3-8.2) g/dL Albumin 2.8 L (3.5-5.0) g/dL Lipase 96 (23-300) U/L HCG, Quant 1808.5 mIU/mL Blood Type Blood Type Recheck Bld Type Recheck Status Antibody Screen Antibody Identification Direct Antiglob Test Crossmatch Spec Expiration Date 12/11/21 Range/Units 22:45 WBC (3.8-10.6) k/uL RBC (3.80-5.40) m/uL Hgb (11.4-16.0) gm/dL Hct (34.0-46.0) % MCV (80.0-100.0) fL MCH (25.0-35.0) pg MCHC (31.0-37.0) g/dL RDW (11.5-15.5) % Plt Count (150-450) k/uL MPV Neutrophils % % Lymphocytes % % Monocytes % % Eosinophils % % Basophils % % Neutrophils # (1.3-7.7) k/uL Lymphocytes # (1.0-4.8) k/uL Monocytes # (0-1.0) k/uL Eosinophils # (0-0.7) k/uL Basophils # (0-0.2) k/uL Sodium (137-145) mmol/L Potassium (3.5-5.1) mmol/L Chloride (98-107) mmol/L Carbon Dioxide (22-30) mmol/L Anion Gap mmol/L BUN (7-17) mg/dL Creatinine (0.52-1.04) mg/dL Est GFR (CKD-EPI)AfAm (>60 ml/min/1.73 sqM) Est GFR (CKD-EPI)NonAf (>60 ml/min/1.73 sqM) Glucose (74-99) mg/dL Plasma Lactic Acid Jagdeep (0.7-2.0) mmol/L Calcium (8.4-10.2) mg/dL Total Bilirubin (0.2-1.3) mg/dL AST (14-36) U/L ALT (4-34) U/L Alkaline Phosphatase (38-126) U/L Total Protein (6.3-8.2) g/dL Albumin (3.5-5.0) g/dL Lipase (23-300) U/L HCG, Quant mIU/mL Blood Type A Negative Blood Type Recheck A Neg Bld Type Recheck Status No Antibody Screen POSITIVE Antibody Identification Anti-D Direct Antiglob Test Negative Crossmatch See Detail Spec Expiration Date 12/14/2021 - 3983 - Radiology Data Radiology results: report reviewed (Ultrasound shows no IUP positive for fluid likely ectopic based on history), image reviewed Critical Care Time Critical Care Time: Yes Total Critical Care Time: 31 Disposition Clinical Impression: Abdominal pain, Ruptured ectopic Disposition: ADMITTED IP TO THIS [facility] Condition: Critical Is patient prescribed a controlled substance at d/c from ED?: No Time of Disposition: 23:45
== END 2021-12-14 09:48 | disposition home or self-care (01) ==
LOC: EC 20:07 → INTOOBSV 23:44 → 4FBP 23:44 → UNDODISIN 12-14 09:48
PROVIDERS: ADMIT Obstetrics & Gynecology; ATTEND Obstetrics & Gynecology
PROC: 0DCW4ZZ Extirpation of Matter from Peritoneum, Percutaneous Endoscopic Approach (ICD-10-PCS; 2021-12-12)
PROC: 10T24ZZ Resection of Products of Conception, Ectopic, Percutaneous Endoscopic Approach (ICD-10-PCS; 2021-12-12)
PROC: 0UB54ZZ Excision of Right Fallopian Tube, Percutaneous Endoscopic Approach (ICD-10-PCS; principal; 2021-12-12 01:00)
PROC: 30233N1 Transfusion of Nonautologous Red Blood Cells into Peripheral Vein, Percutaneous Approach (ICD-10-PCS; 2021-12-13)
DX: O00.101 Right tubal pregnancy without intrauterine pregnancy (principal); K66.1 Hemoperitoneum; D62 Acute posthemorrhagic anemia; F17.210 Nicotine dependence, cigarettes, uncomplicated
CPT/HCPCS: 96374; 96375; 99291; 36415; 86900; 86901; 88305; 80053; 83605; 83690; 85025 ×4; 86850; 86920; 86870; 86880; 84702; 76801; 76817; 59151; G0378 ×3; P9016; J2250; J2270; J1100; J0690; J2405 ×2; J3010; J0131 ×2; J1885; J0330; J2704; J1170 ×2; J2001; 96361; 96365; 99285

== ENCOUNTER → 2021-12-27 | Outpatient (CLI) | payer OTHER ==
--- NOTE | 2021-12-27 12:56 | US ---
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 Abnormal la bs, goiter felt TECHNIQUE: Multiple sonographic images of the thyroid gland are obtained. FINDINGS: GLAND SIZE: Right Lobe: 5.4 x 1.1 x 1.9 cm Overall Parenchyma: homogenous Left Lobe: 4.7 x 2.2 x 2.2 cm Overall Parenchyma: heterogeneous Isthmus Thickness: 0.4 cm NODULES RIGHT: # of nodules measured on right: 0 LEFT: # of nodules measured on left: 1 1. 2.7 X 2.4 x 1.4 cm, lower mid, solid or almost completely solid, hypoechoic nodule, which is wid er than tall, with smooth margins, without echogenic foci. Prior size: [employer] ISTHMUS: # of nodules measured in the isthmus: 1 1. 1.3 X 1.1 x 0.8 cm solid or almost completely solid, hypoechoic nodule, which is wider than tall , with smooth margins, without echogenic foci. Prior size: [employer] Bilateral neck scanned, no evidence of lymphadenopathy. IMPRESSION: 2 dominant TR4 nodules in the thyroid gland. Largest in the left lobe measures 2.7 cm. Additional 1.3 cm nodule in the thyroid isthmus. FNA can be considered.
== END | disposition home or self-care (01) ==
LOC: RADUSWWP 09:09
PROVIDERS: ATTEND Family Medicine
DX: E01.1 Iodine-deficiency related multinodular (endemic) goiter (principal)
CPT/HCPCS: 76536

== ENCOUNTER 2022-05-31 12:21 | Day surgery (SDC) | payer OTHER ==
[2022-05-31 13:07] VITALS: RESP 16; TEMP 97.8
[2022-05-31] MEDS ORDERED: ALPRAZolam 0.5 MG TAB PO STA (13:20)
--- NOTE | 2022-05-31 14:24 | US ---
ULTRASOUND GUIDED FNA THYROID BIOPSY: CLINICAL HISTORY: Request for isthmus and left thyroid nodule biopsy FINDINGS: The procedure was explained to the patient. The risks, complications, benefits and alternatives were discussed and any questions were answered. Informed consent was obtained. Patient was placed supin e on the ultrasound table and prepped and draped in the usual sterile fashion. Utilizing a 25 gauge needle, five passes were made into the isthmus and left thyroid requested nodules. Patient was stable throughout the procedure. Pathology is pending. All elements of maximal barrier technique were utilized. IMPRESSION: 1. Successful ultrasound guided FNA thyroid biopsy.
[2022-05-31 14:39] VITALS: BP 141/89; PULSE 75
== END 2022-05-31 14:30 | disposition home or self-care (01) ==
LOC: RADPROMAIN 12:21
PROVIDERS: ATTEND Family Medicine
DX: E04.2 Nontoxic multinodular goiter (principal)
CPT/HCPCS: 10005; 10006; 88173; 88305

== ENCOUNTER → 2022-10-31 | Outpatient (CLI) | payer OTHER ==
[2022-10-31 19:56] LABS: Basophils # (A) 0.06 X 10*3/uL; Basophils % (A) 0.7 %; Eosinophils # (A) 0.16 X 10*3/uL; Eosinophils % (A) 1.8 %; HGB 13.1 d/dL; Lymphocytes # (A) 1.74 X 10*3/uL; Lymphocytes % (A) 19.9 %; MCH 28.5 pg; MCHC 32.8 d/dL; MCV 87.1 FL; Mean Platelet Volume 11.9 FL; Monocytes # (A) 0.63 X 10*3/uL; Monocytes % (A) 7.2 %; NRBC Per 100 WBC 0 X 10*3/uL; Neutrophils # (A) 6.13 X 10*3/uL; Neutrophils % (A) 70.1 %; Platelet Count 253 X 10*3/uL; RBC 4.59 X 10*6/uL; RDW 13.6 %; WBC 8.75 X 10*3/uL
[2022-10-31 20:32] LABS: ALT 16 U/L; AST 15 U/L
[2022-11-01 00:18] LABS: Hepatitis B Surface AB- Quant 3.5 mIU/mL; Hepatitis B Surface Antigen Nonreactive; Hepatitis C IgG Antibody Nonreactive
== END | disposition home or self-care (01) ==
LOC: LABWHC1 12:35
PROVIDERS: ATTEND Dermatology
DX: L40.0 Psoriasis vulgaris (principal)
CPT/HCPCS: 36415; 82565; 84450; 84460; 85025; 86480; 86704; 86706; 86803; 87340